=== PATIENT | male | born 1955 | race Caucasian/White ===

== ENCOUNTER 2017-05-05 15:08 | Emergency (ER) | payer MEDICAID ==
[~2017-05-05] VITALS: Ht 167.6 cm; Wt 73.0 kg
[2017-05-05 16:10] VITALS: BP 148/97
== END 2017-05-05 20:00 | disposition home or self-care (01) ==
LOC: ER 19:49
DX: N40.1 Benign prostatic hyperplasia with lower urinary tract symptoms (principal); R33.9 Retention of urine, unspecified; Z98.890 Other specified postprocedural states
CPT/HCPCS: 99283; Z7610